=== PATIENT | male | born 1940 | race Caucasian/White ===

== ENCOUNTER 2018-05-04 20:07 | Inpatient (IN) ==
[2018-05-04] MEDS ORDERED: Ampicillin/Sulbactam Inj 3 GM in Sodium Chloride 0.9% Inj 100 ML IV.SIG ONE (21:32)
[2018-05-04] MEDS ORDERED: Acetaminophen 325 MG Tablet PO ONE (21:32)
[2018-05-04] MEDS ORDERED: Diphtheria/Tetanus/Pertussis Vaccine Inj 0.5 ML Syringe IM ONE (21:44)
--- NOTE | 2018-05-04 21:44 | ED ---
HPI General Chief complaint: Animal Bite Stated complaint: dog bit on R hand X2days Time Seen by Provider: 05/04/18 21:26 Source: patient and family Mode of arrival: ambulatory Limitations: no limitations History of Present Illness HPI narrative: 77-year-old male here for evaluation of right hand pain and swelling after being bitten by one of his own dogs on 05/01/18, 3 days ago. Patient reports that his 2 dogs were playing with each other and the dorsal aspect of his right hand was incidentally punctured by one of their teeth. Both of his dogs are fully immunized. He states he noticed increasing swelling to the dorsal aspect of his right hand yesterday. He has been soaking his hand in Epsom salts and reports that the swelling has improved somewhat. States that the pain was a lot worse yesterday, now is minimal. He has full range of motion in, however this causes mild pain. Initial vital signs show that the patient has a temp of 103.5 F and is tachycardic. States that he has felt feverish since yesterday. He is right-hand dominant. No other injuries. Date of last tetanus is unknown. Related Data Home Medications Medication Instructions Recorded Confirmed No Known Home Medications 05/04/18 05/04/18 Allergies Allergy/AdvReac Type Severity Reaction Status Date / Time No Known Allergies Allergy Verified 05/04/18 20:18 Review of Systems ROS: all other systems reviewed are negative PMFSH Medical History Medical History Patient denies medical problems (Acute) Surgical History Surgical History No history of previous surgery (Acute) Social History Social History Substance History: No History of Abuse Second Hand Smoke Exposure: No Smoking Status: Never smoker How Often Do You Have a Drink Containing Alcohol: Monthly or less Recent Travel in [facility] within the Last 8 Weeks: No Recent Out of Country Travel within the Last 8 Weeks: No Immunization History Tetanus Immunization: >5 Years Exam Narrative Exam Narrative: GENERAL: Well-developed, well-nourished, comfortable, no apparent distress. SKIN: Diffuse swelling to the dorsal aspect of the right hand with warmth and erythema with a wound over the second metacarpal on the dorsal aspect of that hand. There are no red streaks. No fluctuance or induration. No crepitus. No edema to the palmar aspect of his right hand. No [place] signs. Full range of flexion and extension in all fingers in the right hand. HEAD: Atraumatic. Normocephalic. EYES: Pupils equal and round. No scleral icterus. No injection or drainage. ENT: No nasal bleeding or discharge. Mucous membranes pink and moist. NECK: Trachea midline. No JVD. CARDIOVASCULAR: Tachycardic, rate 110, regular. Bilateral distal radial pulses are brisk and equal. RESPIRATORY: No accessory muscle use. Clear to auscultation. Breath sounds equal bilaterally. GASTROINTESTINAL: Abdomen soft, non-tender, nondistended. MUSCULOSKELETAL: Skin exam as above. No axillary lymphadenopathy. All compartments in the right upper extremity are supple, and the right upper extremity is neurovascularly intact. NEUROLOGICAL: Awake and alert. No obvious cranial nerve deficits. Motor grossly within normal limits. Normal speech. PSYCHIATRIC: Appropriate mood and affect; insight and judgment normal. Course Initial Documented Vital Signs Temperature 102.6 F H 05/04/18 20:16 Pulse Rate 102 H 05/04/18 20:16 Respiratory Rate 18 05/04/18 20:16 Blood Pressure 154/72 H 05/04/18 20:16 Pulse Oximetry 96 05/04/18 20:16 Last Documented Vital Signs Temperature 101.0 F H 05/04/18 22:35 Pulse Rate 98 H 05/04/18 22:35 Respiratory Rate 20 05/04/18 22:35 Blood Pressure 115/53 L 05/04/18 22:35 Pulse Oximetry 94 L 05/04/18 22:35 Medical Decision Making MDM Narrative Medical decision making narrative: . Vital signs reviewed. The patient initially presented tachycardic with a temp of 103.5 F, normotensive. Sepsis protocol started shortly after the patient arrived to the emergency department, he is written for IV fluids, Tylenol, and IV antibiotics (Unasyn) CBC is remarkable for WBC 20,000 with 86.4% neutrophils CMP is remarkable for creatinine 1.4, GFR 49. Lactic acid is 1.5. Right hand ultrasound: CONCLUSION: 1. Mildly increased vascularity in the area of swelling. No fluid collections. Patient was made aware of all findings. He will be admitted for further treatment and evaluation of sepsis, right hand cellulitis. Case discussed with hospitalist VITA Henry who will admit the patient to the hospitalist service under Dr. Tilley. Medical Screen Exam Complete: Yes Emergency Medical Condition: Yes Differential Diagnosis Differential Diagnosis: Sepsis, cellulitis, hand abscess, extensor tenosynovitis Lab Data Result diagrams: 05/04/18 21:38 05/04/18 22:09 Lab Results 05/04/18 05/04/18 05/04/18 Range/Units 21:38 22:09 22:09 CBC w Diff Slide review pending WBC 20.4 H (4.0-11.0) th/mm3 RBC 4.74 (4.50-5.90) mil/mm3 Hgb 15.4 (13.0-17.0) gm/dL Hct 43.2 (39.0-51.0) % MCV 90.9 (80.0-100.0) fL MCH 32.4 (27.0-34.0) pg MCHC 35.7 (32.0-36.0) % RDW 13.4 (11.6-17.2) % Plt Count 199 (150-450) th/mm3 MPV 8.7 (7.0-11.0) fL Neut % (Auto) 86.4 H (16.0-70.0) % Lymph % (Auto) 3.5 L (9.0-44.0) % Iron % (Auto) 5.3 (0.0-8.0) % Eos % (Auto) 0.0 (0.0-4.0) % Baso % (Auto) 4.8 H (0.0-2.0) % Neut # (Auto) 17.6 H (1.8-7.7) th/mm3 Lymph # (Auto) 0.7 L (1.0-4.8) th/mm3 Iron # (Auto) 1.1 H (0.0-0.9) th/mm3 Eos # (Auto) 0.0 (0.0-0.4) th/mm3 Baso # (Auto) 1.0 H (0.0-0.2) th/mm3 WBC Differential . Diff Scan Auto diff confirmed Differential Comment . Platelet Estimate Normal (Normal) Platelet Morphology Normal (Normal) RBC Morphology Normal (Normal) PT 12.3 H (9.8-11.6) sec INR 1.2 Ratio APTT 24.5 (24.3-30.1) sec Sodium 135 L (136-145) meq/L Potassium 3.8 (3.5-5.1) meq/L Chloride 102 (98-107) meq/L Carbon Dioxide 25.3 (21.0-32.0) meq/L Anion Gap 8 (5-15) meq/L BUN 17 (7-18) mg/dL Creatinine 1.40 H (0.60-1.30) mg/dL Estimated GFR 49 L (>89) mL/min Random Glucose 133 H (74-106) mg/dL Lactic Acid (0.4-2.0) mmol/L Calcium 8.2 L (8.5-10.1) mg/dL Magnesium 1.8 (1.5-2.5) mg/dL Total Bilirubin 1.3 H (0.2-1.0) mg/dL AST 12 L (15-37) U/L ALT 16 (12-78) U/L Alkaline Phosphatase 83 (45-117) U/L Total Protein 7.4 (6.4-8.2) g/dL Albumin 3.6 (3.4-5.0) g/dL 05/04/18 Range/Units 22:09 CBC w Diff WBC (4.0-11.0) th/mm3 RBC (4.50-5.90) mil/mm3 Hgb (13.0-17.0) gm/dL Hct (39.0-51.0) % MCV (80.0-100.0) fL MCH (27.0-34.0) pg MCHC (32.0-36.0) % RDW (11.6-17.2) % Plt Count (150-450) th/mm3 MPV (7.0-11.0) fL Neut % (Auto) (16.0-70.0) % Lymph % (Auto) (9.0-44.0) % Iron % (Auto) (0.0-8.0) % Eos % (Auto) (0.0-4.0) % Baso % (Auto) (0.0-2.0) % Neut # (Auto) (1.8-7.7) th/mm3 Lymph # (Auto) (1.0-4.8) th/mm3 Iron # (Auto) (0.0-0.9) th/mm3 Eos # (Auto) (0.0-0.4) th/mm3 Baso # (Auto) (0.0-0.2) th/mm3 WBC Differential Diff Scan Differential Comment Platelet Estimate (Normal) Platelet Morphology (Normal) RBC Morphology (Normal) PT (9.8-11.6) sec INR Ratio APTT (24.3-30.1) sec Sodium (136-145) meq/L Potassium (3.5-5.1) meq/L Chloride (98-107) meq/L Carbon Dioxide (21.0-32.0) meq/L Anion Gap (5-15) meq/L BUN (7-18) mg/dL Creatinine (0.60-1.30) mg/dL Estimated GFR (>89) mL/min Random Glucose (74-106) mg/dL Lactic Acid 1.5 (0.4-2.0) mmol/L Calcium (8.5-10.1) mg/dL Magnesium (1.5-2.5) mg/dL Total Bilirubin (0.2-1.0) mg/dL AST (15-37) U/L ALT (12-78) U/L Alkaline Phosphatase (45-117) U/L Total Protein (6.4-8.2) g/dL Albumin (3.4-5.0) g/dL Imaging Data Radiologist's impression: Upper Extremity Ultrasound 05/04/18 21:39 CONCLUSION: 1. Mildly increased vascularity in the area of swelling. No fluid collections. ECG Data Attestation: I personally reviewed and interpreted this ECG as follows: (Sinus tachycardia, rate 106, normal axis, normal intervals, Q waves in inferior leads with T wave inversions, no ST segment abnormalities.) Discharge Plan Discharge Disposition Patient Disposition: 30 Still Patient Discharge Condition Condition: Stable Discharge Details Diagnosis: Sepsis, Dog bite, Cellulitis of hand, right Physicians Team ED Provider: Pardeep Kendall Primary Care Provider: Primary Care Angela Be Rxs /Orders / Referrals /Forms Prescriptions: No Action No Known Home Medications RF: 0 Discharge Interventions Interventions: Vital Signs Last Done: 05/04/18 22:35 Status ED Status: With Doctor
[2018-05-04] MEDS ORDERED: Sod Chloride 0.9% Inj 1,000 ML IV.SIG SCH (21:45)
[2018-05-04] MEDS ORDERED: Sod Chloride 0.9% Inj 800 ML IV.SIG SCH (21:45)
[2018-05-04 21:49] LABS: Baso % (Auto) 4.8 % (0.0-2.0); Hematocrit 43.2 % (39.0-51.0); Hemoglobin 15.4 gm/dL (13.0-17.0); Lymph # (Auto) 0.7 th/mm3 (1.0-4.8); Lymph % (Auto) 3.5 % (9.0-44.0); Mean Corpuscular HGB Conc 35.7 % (32.0-36.0); Mean Corpuscular Hemoglobin 32.4 pg (27.0-34.0); Mean Corpuscular Volume 90.9 fL (80.0-100.0); Mean Platelet Volume 8.7 fL (7.0-11.0); Mono # (Auto) 1.1 th/mm3 (0.0-0.9); Mono % (Auto) 5.3 % (0.0-8.0); Neut # (Auto) 17.6 th/mm3 (1.8-7.7); Neut % (Auto) 86.4 % (16.0-70.0); Platelet Count 199 th/mm3 (150-450); Red Blood Count 4.74 mil/mm3 (4.50-5.90); Red Cell Distribution Width 13.4 % (11.6-17.2); White Blood Count 20.4 th/mm3 (4.0-11.0)
[2018-05-04 22:25] LABS: Platelet Estimate Normal (Normal); Platelet Morphology Normal (Normal); RBC Morphology Normal (Normal)
[2018-05-04 22:26] LABS: Chloride 102 meq/L (98-107); Potassium 3.8 meq/L (3.5-5.1); Sodium 135 meq/L (136-145)
[2018-05-04 22:29] LABS: Calcium 8.2 mg/dL (8.5-10.1)
[2018-05-04 22:30] LABS: Albumin 3.6 g/dL (3.4-5.0); Anion Gap 8 meq/L (5-15); Blood Urea Nitrogen 17 mg/dL (7-18); Carbon Dioxide 25.3 meq/L (21.0-32.0); Glucose,Random 133 mg/dL (74-106); Magnesium 1.8 mg/dL (1.5-2.5)
[2018-05-04 22:33] LABS: Alanine Aminotransferase 16 U/L (12-78); Aspartate Aminotransferase 12 U/L (15-37); Glomerular Filtration Rate 49 mL/min (>89)
[2018-05-04 22:35] LABS: Total Protein 7.4 g/dL (6.4-8.2)
[2018-05-04 22:36] LABS: Activated Partial Thrombo Time 24.5 sec (24.3-30.1); Alkaline Phosphatase 83 U/L (45-117); INR 1.2 Ratio; Prothrombin Time 12.3 sec (9.8-11.6)
--- NOTE | 2018-05-04 22:44 | US ---
EXAM DATE: 05/04/2018 10:31 PM EDT AGE/SEX: 77 years / Male INDICATIONS: Abscess. CLINICAL DATA: This is the patient's initial encounter. Patient reports that signs and symptoms have been present for 2 days and indicates a pain score of 3/10. MEDICAL/SURGICAL HISTORY: . Right hand swelling. None. COMPARISON: No prior exams available for comparison. FINDINGS: Mildly increased vascularity in the area of swelling. No abnormal fluid collections and no soft tissu e mass. CONCLUSION: 1. Mildly increased vascularity in the area of swelling. No fluid collections. Electronically signed by: Guilherme Morgan MD 05/04/2018 10:43 PM EDT
[2018-05-05] MEDS: Sod Chloride 0.9% Inj 1,000 ML IV.CONT SCH ×3 (01:52→23:15)
[2018-05-05] MEDS ORDERED: Influenza (Quadrivalent) Vaccine 0.5 ML Syringe IM ONE (02:00)
[2018-05-05] MEDS ORDERED: Ampicillin/Sulbactam Inj 3 GM in Sodium Chloride 0.9% Inj 100 ML IV.SIG ONE (04:00)
[2018-05-05 05:33] LABS: Baso # (Auto) 0.4 th/mm3 (0.0-0.2); Baso % (Auto) 2.2 % (0.0-2.0); Hematocrit 42.2 % (39.0-51.0); Hemoglobin 14.2 gm/dL (13.0-17.0); Lymph # (Auto) 1.6 th/mm3 (1.0-4.8); Lymph % (Auto) 7.9 % (9.0-44.0); Mean Corpuscular HGB Conc 33.7 % (32.0-36.0); Mean Corpuscular Hemoglobin 31.7 pg (27.0-34.0); Mean Corpuscular Volume 94.1 fL (80.0-100.0); Mean Platelet Volume 8.8 fL (7.0-11.0); Mono # (Auto) 1.7 th/mm3 (0.0-0.9); Mono % (Auto) 8.4 % (0.0-8.0); Neut # (Auto) 16.1 th/mm3 (1.8-7.7); Neut % (Auto) 81.5 % (16.0-70.0); Platelet Count 137 th/mm3 (150-450); Red Blood Count 4.48 mil/mm3 (4.50-5.90); Red Cell Distribution Width 12.4 % (11.6-17.2); White Blood Count 19.8 th/mm3 (4.0-11.0)
[2018-05-05 05:41] LABS: Potassium 3.6 meq/L (3.5-5.1)
[2018-05-05 05:44] LABS: Calcium 7.9 mg/dL (8.5-10.1); Carbon Dioxide 25.9 meq/L (21.0-32.0)
[2018-05-05 05:54] LABS: Lymphocytes 11 % (9-44); Monocytes 7 % (0-8); Platelet Morphology Normal (Normal); RBC Morphology Normal (Normal)
--- NOTE | 2018-05-05 08:37 | P.HPIM ---
History of Present Illness Primary Care Physician: No Primary Care Physician History of Present Illness: 77 year old male with no significant medical problems presenting for evaluation of redness and swelling of his right hand. He reports he was bit by a dog about four days ago and yesterday he started noticing his hand was very red and swollen. He states his fingers and hand were very stiff and he could barely make a fist. He feels since yesterday he has improved since he is now able to open and close his hand without any problems. He endorses some chills but did not check a temperature. He denies nausea, vomiting, abdominal pain, nausea, vomiting, headache, or confusion. He doesn't have a PCP. He has not had a tetanus vaccine in the last 10 years. 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 This includes certification that hospital inpatient services are reasonable and necessary and in the case of services not specified as inpatient-only under 42 CFR 419.22(n), that they are appropriately provided as inpatient services in accordance to with the 2-midnight benchmark under 43 CFR 412.3(e) Estimated Total Length of Stay (Days): 2 Plans for Post Hospital Care: Home Review of Systems All other systems reviewed negative except as stated in H[facility] - History History Provided By: Patient - Medical History Medical History: Medical History (Last Reviewed 05/05/18 @ 08:36 by Nina Luz MD) Patient denies medical problems - Surgical History Surgical History: Surgical History (Last Reviewed 05/05/18 @ 08:36 by Nina Luz MD) No history of previous surgery - Family History Family History: Family History (Last Updated 05/05/18 @ 16:34 by Nina Luz MD) Mother Heart disease Father Heart disease - Social History I have reviewed the patient's Social History: Yes - Tobacco History Second Hand Smoke Exposure: No Smoking Status: Former smoker - Alcohol History How Often Do You Have a Drink Containing Alcohol: Monthly or less - Substance Use History Substance History: No History of Abuse - Travel History Recent Travel in the [place] Within the Last 8 Weeks: No Recent Travel Out of the Country Within the Last 8 Weeks: No - Immunization History Tetanus Immunization: <5 Years Hx Influenza Vaccine This Season: No Medications and Allergies Active Medications: Active Medications Sodium Chloride (Ns Inj) 1,000 mls @ 0 mls/hr IV.SIG .Q0M [facility] Last Infusion: 05/04/18 23:22 Dose: Infused Sodium Chloride (Ns Inj) 800 mls @ 0 mls/hr IV.SIG .Q0M [facility] Last Infusion: 05/04/18 23:22 Dose: Infused Sodium Chloride (Ns Inj) 1,000 mls @ 100 mls/hr IV.CONT .Q10H [facility] Last Admin: 05/05/18 01:52 Dose: 100 mls/hr Ampicillin Sodium/Sulbactam (Sodium 3 gm/ Sodium Chloride) 100 mls @ 200 mls/ hr IV.SIG Q6H [facility] Allergies Allergy/AdvReac Type Severity Reaction Status Date / Time No Known Allergies Allergy Verified 05/04/18 20:18 Home Medications Medication Instructions Recorded Confirmed Type No Known Home Medications 05/04/18 05/04/18 History Exam Vital signs: Vital Signs 05/04/18 20:16 05/04/18 20:18 05/04/18 21:47 Temperature 102.6 F H 103.2 F H Pulse Rate 102 H 103 H Respiratory Rate 18 18 Blood Pressure 154/72 H 175/85 H Pulse Oximetry 96 95 98 05/04/18 22:35 05/05/18 00:00 05/05/18 01:31 Temperature 101.0 F H 101.0 F H Pulse Rate 98 H 98 H 84 Respiratory Rate 20 20 Blood Pressure 115/53 L 118/59 L Pulse Oximetry 94 L 98 05/05/18 01:33 05/05/18 04:00 Temperature 98.5 F Pulse Rate 84 Respiratory Rate 18 Blood Pressure 113/51 L Pulse Oximetry 98 97 Intake & Output 05/04/18 05/05/18 05/05/18 18:59 06:59 18:59 Intake Total 1999 Output Total 350 / 350 Balance 1650 / 1650 Weight 81 kg Intake: IV 1999 Unasyn Inj 3 GM In NS Inj 100 200 / 200 ML @ 200 mls/hr IV.SIG ONCE ONE Rx#:[id number] NS Inj 800 ML @ Wide Open IV. 1800 / 1800 SIG .Q0M [facility] Rx#:[id number] Output: Urine 350 / 350 Other: Date of Last Bowel Movement 05/05/18 Weight On Admission 81 kg Narrative: GENERAL: WN, WD male resting in bed in NAD. SKIN: Warm and dry. HEENT: AT/NC. Pupils equal and round. MMM. NECK: Supple no tender LAD or JVD. HEART: RRR no m/r/g. LUNGS: CTAB without wheezes or crackles. ABDOMEN: +BS, soft, NT, ND. EXTREMITIES: Right dorsal hand significantly erythematous and swollen with a scabbed bite wound. Able to open and close fist. Neurovascular intact. Erythema extends proximally towards elbow and there is some epitrochlear lymphadenopathy. NEURO: Awake and alert. PSYCH: Appropriate mood and affect. Results - Labs CBC & Chem 7: 05/05/18 04:50 05/05/18 04:50 Labs: Short CBC 05/04/18 05/05/18 Range/Units 21:38 04:50 WBC 20.4 H 19.8 H (4.0-11.0) th/mm3 Hgb 15.4 14.2 (13.0-17.0) gm/dL Hct 43.2 42.2 (39.0-51.0) % Plt Count 199 137 L D (150-450) th/mm3 BMP 05/04/18 05/05/18 22:09 04:50 Sodium 135 L 140 Potassium 3.8 3.6 Chloride 102 106 Carbon Dioxide 25.3 25.9 BUN 17 17 Creatinine 1.40 H 1.30 Calcium 8.2 L 7.9 L Liver Function 05/04/18 Range/Units 22:09 Total Bilirubin 1.3 H (0.2-1.0) mg/dL AST 12 L (15-37) U/L ALT 16 (12-78) U/L Alkaline Phosphatase 83 (45-117) U/L Albumin 3.6 (3.4-5.0) g/dL - Imaging Impressions Upper Extremity Ultrasound 05/04/18 21:39 CONCLUSION: 1. Mildly increased vascularity in the area of swelling. No fluid collections. Caprini VTE Risk Assessment Caprini VTE Risk Assessment: Moderate/High Risk (score >= 2) Caprini Risk Assessment Model: Point Value = 1 Point Value = 2 Point Value = 3 Point Value = 5 Age 41-60 Minor surgery BMI > 25 kg/m2 Swollen legs Varicose veins or History of unexplained or recurrent spontaneous Oral contraceptives or hormone replacement Sepsis (< 1 month) Serious lung disease, including pneumonia (< 1 month) Abnormal pulmonary function Acute myocardial infarction Congestive heart failure (< 1 month) History of inflammatory bowel disease Medical patient at bed rest Age 61-74 Arthroscopic surgery Major open surgery (> 45 min) Laparoscopic surgery (> 45 min) Malignancy Confined to bed (> 72 hours) Immobilizing plaster cast Central venous access Age >= 75 History of VTE Family history of VTE Factor V Leiden Prothrombin [id number] Lupus anticoagulant Anticardiolipin antibodies Elevated serum homocysteine Heparin-induced thrombocytopenia Other congenital or acquired thrombophilia Stroke (< 1 month) Elective arthroplasty Hip, pelvis, or leg fracture Acute spinal cord injury (< 1 month) Prophylaxis Regimen: Total Risk Factor Score Risk Level Prophylaxis Regimen 0-1 Low Early ambulation 2 Moderate Order ONE of the following: *Sequential Compression Device (SCD) *Heparin 5000 units SQ BID 3-4 Higher Order ONE of the following medications: *Heparin 5000 units SQ TID *Enoxaparin/Lovenox 40 mg SQ daily (WT < 150 kg, CrCl > 30 mL/min) *Enoxaparin/Lovenox 30 mg SQ daily (WT < 150 kg, CrCl > 10-29 mL/min) *Enoxaparin/Lovenox 30 mg SQ BID (WT < 150 kg, CrCl > 30 mL/min) AND/OR *Sequential Compression Device (SCD) 5 or more Highest Order ONE of the following medications: *Heparin 5000 units SQ TID (Preferred with Epidurals) *Enoxaparin/Lovenox 40 mg SQ daily (WT < 150 kg, CrCl > 30 mL/min) *Enoxaparin/Lovenox 30 mg SQ daily (WT < 150 kg, CrCl > 10-29 mL/min) *Enoxaparin/Lovenox 30 mg SQ BID (WT < 150 kg, CrCl > 30 mL/min) AND *Sequential Compression Device (SCD) Assessment and Plan - Assessment (1) Sepsis Code(s): A41.9 - Sepsis, unspecified organism Status: Acute (2) Dog bite Code(s): W54.0XXA - Bitten by dog, initial encounter Status: Acute (3) Cellulitis of hand, right Code(s): L03.113 - Cellulitis of right upper limb Status: Acute - Plan 77 year old male with no significant medical problems presenting for evaluation of redness and swelling of his right hand following a dog bite wound. 1. Sepsis - WBC 20.4 on admission with HR>90 and T 102.6 - Lactic acid WNL - Source is R hand cellulitis - Bolused x 2 in the ED - NS at 100 ml/hr - Blood cultures pending - See further plans below 2. R hand cellulitis - Secondary to dog bite wound - Tetanus vaccine administered in the ED - Continue Unasyn for coverage of oral dog jose but will also add vancomycin to cover for MRSA - Blood cultures pending - Consult hand surgery 3. Renal insufficiency - Creatinine 1.40 with eGFR 49 - Patient hasn't had any primary care in a long time and to his knowledge has no known medical problems - Unclear if this is his baseline and he has CKD or if this is acute renal injury - Will continue to monitor - Avoid nephrotoxic agents and renally dose meds DVT prophylaxis: Heparin Q12 Code Status: FULL Discharge Planning: Pending further evaluation and clinical improvement H&P: Quality - VTE Deep Vein Thrombosis/Pulmonary Embolism Present on Admission: No (1) Sepsis Qualifiers: Sepsis type: sepsis due to unspecified organism Qualified Code(s): A41.9 - Sepsis, unspecified organism (2) Dog bite Qualifiers: Encounter type: initial encounter Qualified Code(s): W54.0XXA - Bitten by dog , initial encounter
[2018-05-05] MEDS ORDERED: Acetaminophen 325 MG Tablet PO PRN (09:00)
[2018-05-05] MEDS: Ampicillin/Sulbactam Inj 3 GM in Sodium Chloride 0.9% Inj 100 ML IV.SIG SCH ×3 (10:05→23:11)
--- NOTE | 2018-05-05 16:08 | ECG ---
Date Performed: 05/04/2018 Time Performed: 21:52:04 PTAGE: 77 years EKG: SINUS TACHYCARDIA POSSIBLE LEFT ATRIAL ENLARGEMENT INFERIOR MYOCARDIAL INFARCTION ABNORMAL ECG consider Myocardial infarction, age indetrminate NO PREVIOUS TRACING DOCTOR: Aba Browne Interpretating Date/Time 05/05/2018 16:06:23
[2018-05-05] MEDS ORDERED: Tetanus/Diphtheria Toxoid Adult Vaccine Inj 0.5 ML Vial IM ONE (16:30)
[2018-05-05] MEDS ORDERED: Vancomycin Consult Pharmacy OTHER PRN (16:44)
[2018-05-05] MEDS ORDERED: Morphine Sulfate Inj 8 MG/ML Vial IV.PUSH PRN (16:47)
[2018-05-05] MEDS ORDERED: Bisacodyl 10 MG Supp RECTAL PRN (16:49)
[2018-05-05] MEDS ORDERED: Vancomycin Inj 1 GM/200 ML PIGGYBACK IV.SIG SCH (17:00)
[2018-05-05] MEDS ORDERED: Vancomycin Inj 1,000 MG in Sodium Chlor 0.9% Inj 250 ML IV.SIG ONE (18:00)
--- NOTE | 2018-05-05 18:17 | MB ---
cc: Cortez Ruby MD DATE: 05/05/2018 REASON FOR CONSULTATION: Dog bite, right hand, with infection. HISTORY OF PRESENT ILLNESS: The patient is a 77-year-old, right-hand dominant male who presented to the ED last night with complaints of a dog bite to the right hand about 3-4 days ago. The patient states he was playing with his 2 dogs when he got accidentally punctured by one of the dogs' teeth. The patient initially had soaked his hand in Epsom salt and he presented to the ED with complaints of pain, swelling, stiffness of the right hand. He also complains of a fever. Denies any drainage. The patient also complains of worsening pain with range of motion of the hand. PAST MEDICAL AND SURGICAL HISTORY: Reviewed, nonsignificant. PHYSICAL EXAMINATION: GENERAL: The patient is alert and oriented x 3. EXTREMITIES: Examination of the right hand reveals a bite wound over the dorsal aspect of the hand measuring about 0.5 cm. Surrounding swelling and erythema are noted. No drainage noted from the region. He is able to make a full fist. He has full extension of the fingers. No erythema noted over the forearm region. He has intact distal sensation. He has intact distal circulation. LABORATORY DATA: Reviewed. He has a white count of 19.8 and neutrophil shift of 81%. ASSESSMENT: A 77-year-old male with a dog bite to the right hand with a cellulitis, which has been improving with intravenous antibiotics. PLAN: Surrounding skin was cleaned with alcohol wipes. The scab was removed from the region. Mild serosanguineous fluid was drained from the region. The patient has improved considerably following hospital admission yesterday. He states he was not able to make a fist yesterday and now, he is able to make a full fist and he has been improving clinically. No active surgical management needed at the present time. We will continue with IV antibiotics, limb elevation, finger range of motion exercises and hand surgery will follow up tomorrow for clinical reassessment. Cortez Ruby MD SE/lucia , 04:35 PM , 04:42 PM
[2018-05-05] MEDS: Heparin - SQ 10,000 UNITS/ML Vial SQ SCH (21:42)
[2018-05-05] MEDS: Senna/Docusate Sodium 8.6/50 MG Tablet PO SCH (21:43)
--- NOTE | 2018-05-05 22:00 | P.PN ---
Subjective Interval history: NOt seen Physical Exam Vital signs: Vital Signs 05/04/18 22:35 05/05/18 00:00 05/05/18 01:31 Temperature 101.0 F H 101.0 F H Pulse Rate 98 H 98 H 84 Respiratory Rate 20 20 Blood Pressure 115/53 L 118/59 L Pulse Oximetry 94 L 98 05/05/18 01:33 05/05/18 04:00 05/05/18 08:00 Temperature 98.5 F Pulse Rate 84 92 H Respiratory Rate 18 25 H Blood Pressure 113/51 L 115/50 L Pulse Oximetry 98 97 05/05/18 12:00 05/05/18 14:00 05/05/18 16:32 Temperature Pulse Rate 76 84 90 Respiratory Rate 24 24 28 H Blood Pressure 103/52 L 124/55 L Pulse Oximetry 05/05/18 16:54 Temperature Pulse Rate Respiratory Rate Blood Pressure Pulse Oximetry 94 L Intake & Output 05/05/18 05/05/18 05/06/18 06:59 18:59 06:59 Intake Total 1999 / 1999 1680 / 1680 Output Total 350 / 350 550 / 550 Balance 1650 / 1650 1130 / 1130 Weight 81 kg Intake: IV 1999 1200 / 1200 NS Inj 1,000 ML @ 100 mls/hr IV 1000 / 1000 .CONT .Q10H [facility] Rx#:[id number] Unasyn Inj 3 GM In NS Inj 100 200 / 200 200 / 200 ML @ 200 mls/hr IV.SIG Q6H [facility] Rx#:[id number] NS Inj 800 ML @ Wide Open IV. 1800 / 1800 SIG .Q0M [facility] Rx#:[id number] Oral 480 / 480 Output: Urine 350 / 350 550 / 550 Other: Date of Last Bowel Movement 05/05/18 05/05/18 Weight On Admission 81 kg Narrative: GENERAL: WN, WD male resting in bed in [facility]. SKIN: Warm and dry. HEART: RRR no m/r/g. LUNGS: CTAB without wheezes or crackles. ABDOMEN: +BS, soft, NT, ND. EXTREMITIES: Right dorsal hand significantly erythematous and swollen with a scabbed bite wound. Able to open and close fist. Neurovascular intact. Erythema extends proximally towards elbow and there is some epitrochlear lymphadenopathy. NEURO: Awake and alert. PSYCH: Appropriate mood and affect. Results - Labs CBC & Chem 7: 05/05/18 04:50 05/05/18 04:50 Laboratory Results - last 24 hr 05/04/18 05/04/18 05/04/18 21:38 22:09 22:09 CBC w Diff WBC RBC Hgb Hct MCV MCH MCHC RDW Plt Count MPV Neut % (Auto) Lymph % (Auto) [place] % (Auto) Eos % (Auto) Baso % (Auto) Neut # (Auto) Lymph # (Auto) [place] # (Auto) Eos # (Auto) Baso # (Auto) WBC Differential . Diff Scan Auto diff confirmed Seg Neuts % (Manual) Band Neuts % (Manual) Lymphocytes % (Manual) Monocytes % (Manual) Abs Neuts (Manual) Differential Comment Platelet Estimate Normal Platelet Morphology Normal RBC Morphology Normal PT 12.3 H INR 1.2 APTT 24.5 Sodium 135 L Potassium 3.8 Chloride 102 Carbon Dioxide 25.3 Anion Gap 8 BUN 17 Creatinine 1.40 H Estimated GFR 49 L Random Glucose 133 H Lactic Acid Calcium 8.2 L Magnesium 1.8 Total Bilirubin 1.3 H AST 12 L ALT 16 Alkaline Phosphatase 83 Total Protein 7.4 Albumin 3.6 05/04/18 05/05/18 05/05/18 22:09 04:50 04:50 CBC w Diff Slide review pending WBC 19.8 H RBC 4.48 L Hgb 14.2 Hct 42.2 MCV 94.1 MCH 31.7 MCHC 33.7 RDW 12.4 Plt Count 137 L D MPV 8.8 Neut % (Auto) 81.5 H Lymph % (Auto) 7.9 L [place] % (Auto) 8.4 H Eos % (Auto) 0.0 Baso % (Auto) 2.2 H Neut # (Auto) 16.1 H Lymph # (Auto) 1.6 [place] # (Auto) 1.7 H Eos # (Auto) 0.0 Baso # (Auto) 0.4 H WBC Differential Manual diff final Diff Scan Seg Neuts % (Manual) 67 Band Neuts % (Manual) 15 H Lymphocytes % (Manual) 11 Monocytes % (Manual) 7 Abs Neuts (Manual) 16.2 H Differential Comment . Platelet Estimate Low L Platelet Morphology Normal RBC Morphology Normal PT INR APTT Sodium 140 Potassium 3.6 Chloride 106 Carbon Dioxide 25.9 Anion Gap 8 BUN 17 Creatinine 1.30 Estimated GFR 54 L Random Glucose 99 Lactic Acid 1.5 Calcium 7.9 L Magnesium Total Bilirubin AST ALT Alkaline Phosphatase Total Protein Albumin Microbiology 05/04/18 21:38 Blood - Peripheral Aerobic Blood Culture - Preliminary No growth in 1 day 05/04/18 21:38 Blood - Peripheral Anaerobic Blood Culture - Preliminary No growth in 1 day 05/04/18 21:30 Blood - Peripheral Aerobic Blood Culture - Preliminary No growth in 1 day 05/04/18 21:30 Blood - Peripheral Anaerobic Blood Culture - Preliminary No growth in 1 day - Imaging Impressions ITS Impressions Upper Extremity Ultrasound 05/04/18 21:39 CONCLUSION: 1. Mildly increased vascularity in the area of swelling. No fluid collections. Assessment and Plan - Assessment (1) Sepsis Code(s): A41.9 - Sepsis, unspecified organism Status: Acute (2) Dog bite Code(s): W54.0XXA - Bitten by dog, initial encounter Status: Acute (3) Cellulitis of hand, right Code(s): L03.113 - Cellulitis of right upper limb Status: Acute - Plan 77 year old male with no significant medical problems presenting for evaluation of redness and swelling of his right hand following a dog bite wound. 1. Sepsis - WBC 20.4 on admission with HR>90 and T 102.6 - Lactic acid WNL - Source is R hand cellulitis - Bolused x 2 in the ED - NS at 100 ml/hr - Blood cultures pending - See further plans below 2. R hand cellulitis - Secondary to dog bite wound - Tetanus vaccine administered in the ED - Continue Unasyn for coverage of oral dog jose but will also add vancomycin to cover for MRSA - Blood cultures pending - Consult hand surgery 3. Renal insufficiency - Creatinine 1.40 with eGFR 49 - Patient hasn't had any primary care in a long time and to his knowledge has no known medical problems - Unclear if this is his baseline and he has CKD or if this is acute renal injury - Will continue to monitor - Avoid nephrotoxic agents and renally dose meds DVT prophylaxis: Heparin Q12 Code Status: FULL Discharge Planning: Pending further evaluation and clinical improvement (1) Sepsis Qualifiers: Sepsis type: sepsis due to unspecified organism Qualified Code(s): A41.9 - Sepsis, unspecified organism (2) Dog bite Qualifiers: Encounter type: initial encounter Qualified Code(s): W54.0XXA - Bitten by dog , initial encounter
[2018-05-06] MEDS: Ampicillin/Sulbactam Inj 3 GM in Sodium Chloride 0.9% Inj 100 ML IV.SIG SCH ×2 (05:35→10:27)
[2018-05-06 07:32] LABS: Baso % (Auto) 0.4 % (0.0-2.0); Eos # (Auto) 0.1 th/mm3 (0.0-0.4); Eos % (Auto) 0.8 % (0.0-4.0); Hematocrit 35.4 % (39.0-51.0); Hemoglobin 12.4 gm/dL (13.0-17.0); Lymph # (Auto) 1.5 th/mm3 (1.0-4.8); Lymph % (Auto) 15.1 % (9.0-44.0); Mean Corpuscular HGB Conc 34.9 % (32.0-36.0); Mean Corpuscular Hemoglobin 32.4 pg (27.0-34.0); Mean Corpuscular Volume 92.9 fL (80.0-100.0); Mean Platelet Volume 9.7 fL (7.0-11.0); Mono # (Auto) 0.8 th/mm3 (0.0-0.9); Neut # (Auto) 7.7 th/mm3 (1.8-7.7); Neut % (Auto) 75.7 % (16.0-70.0); Platelet Count 133 th/mm3 (150-450); Red Blood Count 3.81 mil/mm3 (4.50-5.90); Red Cell Distribution Width 12.8 % (11.6-17.2); White Blood Count 10.1 th/mm3 (4.0-11.0)
[2018-05-06 07:43] LABS: Potassium 3.7 meq/L (3.5-5.1)
[2018-05-06 07:46] LABS: Calcium 7.9 mg/dL (8.5-10.1)
[2018-05-06 07:47] LABS: Carbon Dioxide 23.9 meq/L (21.0-32.0)
[2018-05-06] MEDS ORDERED: Vancomycin Inj 1,250 MG in Sodium Chlor 0.9% Inj 250 ML IV.SIG SCH (08:00)
[2018-05-06] MEDS: Senna/Docusate Sodium 8.6/50 MG Tablet PO SCH (08:52)
[2018-05-06] MEDS: Heparin - SQ 10,000 UNITS/ML Vial SQ SCH (08:54)
--- NOTE | 2018-05-06 10:32 | P.PN ---
Subjective Interval history: Follow-up right hand dog bite infection. States he is much better about at least 90% improved. He wants to go home. Physical Exam Vital signs: Vital Signs 05/05/18 12:00 05/05/18 14:00 05/05/18 16:32 Temperature Pulse Rate 76 84 90 Respiratory Rate 24 24 28 H Blood Pressure 103/52 L 124/55 L Pulse Oximetry 05/05/18 16:54 05/05/18 20:00 05/05/18 22:00 Temperature 99 F Pulse Rate 84 66 Respiratory Rate 22 16 Blood Pressure 121/52 L Pulse Oximetry 94 L 92 L 05/05/18 23:00 05/06/18 00:00 05/06/18 04:00 Temperature 99.6 F 99.1 F 98.7 F Pulse Rate 68 83 83 Respiratory Rate 14 16 18 Blood Pressure 107/48 L 107/48 L 125/69 Pulse Oximetry 93 L 83 L 95 05/06/18 08:00 Temperature 98.8 F Pulse Rate 85 Respiratory Rate 18 Blood Pressure 153/71 H Pulse Oximetry 96 Intake & Output 05/05/18 05/06/18 05/06/18 18:59 06:59 18:59 Intake Total 1680 / 1680 1690 / 1690 262.5 / 262.5 Output Total 550 / 550 800 / 800 Balance 1130 / 1130 890 / 890 262.5 / 262.5 Weight 85.6 kg Intake: IV 1200 / 1200 1450 / 1450 262.5 / 262.5 NS Inj 1,000 ML @ 70 mls/hr IV. 1000 / 1000 1000 / 1000 CONT .[id number] [facility] Rx#: [id number] Unasyn Inj 3 GM In NS Inj 100 200 / 200 200 / 200 ML @ 200 mls/hr IV.SIG Q6H [facility] Rx#:[id number] Vancomycin Inj 1,000 MG In NS 250 / 250 Inj 250 ML @ 250 mls/hr IV.SIG ONCE ONE Rx#:[id number] Vancomycin Inj 1,250 MG In NS 262.5 / 262.5 Inj 250 ML @ 250 mls/hr IV.SIG Q18H [facility] Rx#:[id number] Oral 480 / 480 240 / 240 Output: Urine 550 / 550 800 / 800 Other: Date of Last Bowel Movement 05/05/18 Narrative: GENERAL: WN, WD male resting in bed in [facility]. SKIN: Warm and dry. HEART: RRR no m/r/g. LUNGS: CTAB without wheezes or crackles. ABDOMEN: +BS, soft, NT, ND. EXTREMITIES: Right dorsal hand with improved erythema and swelling with a scabbed bite wound. Able to open and close fist. Neurovascular intact. NEURO: Awake and alert. PSYCH: Appropriate mood and affect. Results - Labs CBC & Chem 7: 05/06/18 06:09 05/06/18 06:09 Laboratory Results - last 24 hr 05/06/18 05/06/18 06:09 06:09 CBC w Diff Auto diff final WBC 10.1 RBC 3.81 L Hgb 12.4 L Hct 35.4 L MCV 92.9 MCH 32.4 MCHC 34.9 RDW 12.8 Plt Count 133 L MPV 9.7 Neut % (Auto) 75.7 H Lymph % (Auto) 15.1 [place] % (Auto) 8.0 Eos % (Auto) 0.8 Baso % (Auto) 0.4 Neut # (Auto) 7.7 Lymph # (Auto) 1.5 [place] # (Auto) 0.8 Eos # (Auto) 0.1 Baso # (Auto) 0.0 WBC Differential . Differential Comment . Sodium 143 Potassium 3.7 Chloride 110 H Carbon Dioxide 23.9 Anion Gap 9 BUN 14 Creatinine 1.00 Estimated GFR 72 L Random Glucose 85 Calcium 7.9 L Microbiology 05/04/18 21:38 Blood - Peripheral Aerobic Blood Culture - Preliminary No growth in 1 day 05/04/18 21:38 Blood - Peripheral Anaerobic Blood Culture - Preliminary No growth in 1 day 05/04/18 21:30 Blood - Peripheral Aerobic Blood Culture - Preliminary No growth in 1 day 05/04/18 21:30 Blood - Peripheral Anaerobic Blood Culture - Preliminary No growth in 1 day - Imaging ITS Impressions Upper Extremity Ultrasound 05/04/18 21:39 CONCLUSION: 1. Mildly increased vascularity in the area of swelling. No fluid collections. - Procedures none Assessment and Plan - Assessment (1) Sepsis Code(s): A41.9 - Sepsis, unspecified organism Status: Acute (2) Dog bite Code(s): W54.0XXA - Bitten by dog, initial encounter Status: Acute (3) Cellulitis of hand, right Code(s): L03.113 - Cellulitis of right upper limb Status: Acute - Plan 77 year old male with no significant medical problems presenting for evaluation of redness and swelling of his right hand following a dog bite wound. 1. Sepsis. Resolved - WBC 20.4 on admission with HR>90 and T 102.6 - Lactic acid WNL - Source is R hand cellulitis - Bolused x 2 in the ED - NS at 100 ml/hr - Blood cultures pending negative to date - See further plans below 2. R hand cellulitis. Much improved - Secondary to dog bite wound - Tetanus vaccine administered in the ED - Continue Unasyn for coverage of oral dog jose but will also add vancomycin to cover for MRSA. Switch to Augmentin upon discharge - Blood cultures pending negative to date - Consulted hand surgery, medical management. Elevation of the involved extremity 3. Renal insufficiency. Resolving - Creatinine 1.40 with eGFR 49 - Patient hasn't had any primary care in a long time and to his knowledge has no known medical problems - Unclear if this is his baseline and he has CKD or if this is acute renal injury - Will continue to monitor - Avoid nephrotoxic agents and renally dose meds DVT prophylaxis: Heparin Q12 Discharge Planning: Discharge patient to home when cleared by hand surgeon Condition on discharge: Improved significantly earlier than anticipated Regular Diet as tolerated [facility] activity Rx written: Augmentin Follow-up with primary care physician and hand surgery (1) Sepsis Qualifiers: Sepsis type: sepsis due to unspecified organism Qualified Code(s): A41.9 - Sepsis, unspecified organism (2) Dog bite Qualifiers: Encounter type: initial encounter Qualified Code(s): W54.0XXA - Bitten by dog , initial encounter
[2018-05-06] MEDS: Sod Chloride 0.9% Inj 1,000 ML IV.CONT SCH (10:49)
[2018-05-08] MEDS ORDERED: Pharmacy Ordered Lab Info OTHER ONE (13:45)
== END 2018-05-06 12:56 | disposition home or self-care (01) ==
LOC: PHED 20:07 → PHEDA 23:35 → PHICU 05-05 00:24 → PH3 05-06 01:06
PROVIDERS: ADMIT Internal Medicine; ATTEND Internal Medicine